=== PATIENT | female | born 2000 | race Caucasian/White ===

== ENCOUNTER → 2023-08-17 | Outpatient (CLI) | payer OTHER, SELFPAY ==
--- OUTSIDE RECORDS SUMMARY | 2023-08-17 10:55 | XMS RPT_ITS | CCD ---
Author Name Unknown Address [address] [place] [address] Organization [facility] Care Team Providers Care Keg Header Name Role Phone ELENA MYERS Attending UnavailLISSY Miller Attending Unavailable LISSY CANNON Primary Care Unavailable Lissy Cannon MD Primary Care Provider Roseann BYRNE Primary Care Physician [phone] Mihir FRIEND Attending Unavailable Medications Current Medications Medication Drug Class(es) Dates Sig (Normalized) Sig (Original) escitalopram 5 mg oral tablet (1 source) Serotonin Reuptake Inhibitor Start: 12-06-2022 End: 03-06-2023 take 1 tablet by mouth once daily escitalopram (Lexapro) 5 mg tablet Indications: Generalized anxiety disorder Take 1 tablet (5 mg) by mouth once daily. 30 tablet 2 12/06/2022 03/06/2023 Active {7 (Ethinyl Estradiol 0.035 MG / norgestimate 0.18 MG Oral Tablet) / 7 (Ethinyl Estradiol 0.035 MG / norgestimate 0.215 MG Oral Tablet) / 7 (Ethinyl Estradiol 0.035 MG / norgestimate 0.25 MG Oral Tablet) / 7 (Inert Ingredients 1 MG Oral Tablet) } Pack [Tr (2 sources) Progestin, Estrogen Start: 08-15-2021 take 1 tablet by mouth once daily Tri-Sprintec 35 mcg Tab = 1 tab(s), Oral, Daily, # 84 tab(s), Refills(s) 1, Pharmacy: [address], [address], cm, 04/21/20 7:58:00 EDT, Height/Length Dosing, 56.1, kg, 04/21/20 7:58:00 EDT, Weight Dosing Start Date: 08/15/21 Status: Ordered Problems Problem Classification Problem Date Documented Da te Episodic/Chronic Acute and chronic tonsillitis (1 source) Tonsillitis 06-13-2019 Episodic Anxiety disorders (4 sources) Generalized anxiety disorder; Translations: [Generalized anxiety disorder] Onset: 11-12-2021 Chronic Unclassified (1 source) Patient encounter status 06-07-2019 Results Test Name Value Interpretation Reference Range Facil ity Vital Signs Date Time Vital Sign Value Performing Clinician Faci lity 12-06-2022 11:13-0400 Body height 157.5 cm Lissy Cannon MD Work Phone: [facility] 12-06-2022 11:13-0400 Body mass index (BMI) [Ratio] 26.74 kg/m2 Lissy Cannon MD Work Phone: [facility] 12-06-2022 11:13-0400 Body weight 66.32 kg Lissy Cannon MD Work Phone: [facility] 12-06-2022 11:13-0400 Diastolic blood pressure 78 mm[Hg] Lissy Cannon MD Work Phone: [facility] 12-06-2022 11:13-0400 Heart rate 72 /min Lissy Cannon MD Work Phone: [facility] 12-06-2022 11:13-0400 Systolic blood pressure 120 mm[Hg] Lissy Cannon MD Work Phone: [facility] Encounters Encounter Date Encounter Type Care Provider Facility Start: 05-10-2023 End: 05-11-2023 ambulatory Mihir FRIEND Facility:[facility] on Start: 05-10-2023 End: 05-10-2023 Patient encounter procedure Mihir FRIEND [facility] [place] Start: 12-06-2022 End: 12-06-2022 ambulatory LISSY CANNON [facility] Start: 12-06-2022 End: 12-06-2022 Office outpatient new 30 minutes Lissy Cannon MD Work Phone: [facility] Plan of Treatment Date Care Activity Detail Author Start: 2048 Zoster Vaccines (1 of 2) Zoste r Vaccines (1 of 2) [facility] Start: 03-04-2023 Influenza vaccination Influenz a Vaccine (Season Ended) [facility] Start: 01-05-2023 End: 01-05-2023 Patient encounter procedure 01/05/2023 11:40 AM EDT Office Visit [facility] [address] [place] [id number] Lissy Cannon MD [address] [facility] [place] [id number] [facility] Start: 2020 DTaP/Tdap/Td Vaccine s (1 - Tdap) DTaP/Tdap/Td Vaccines (1 - Tdap) [facility] Start: 2019 Screening for malign ant neoplasm of cervix [facility] Start: 2016 Hepatitis C screening Hepatitis C Sc reening [facility] Start: 2009 HPV Vaccines (1 - 2- dose series) HPV Vaccines (1 - 2-dose series) [facility] Start: 1999 MMR Vaccines (1 of 1 - Standard series) MMR Vaccines (1 of 1 - Standard series) [facility] Start: 1999 Varicella vaccination Varicell a Vaccines (1 of 2 - 2-dose childhood series) [facility] Start: 1998 COVID-19 Vaccine (#1) COVID-19 Vacci ne (#1) [facility] Start: 1998 Hepatitis B Vaccines (1 of 3 - 3-dose series) Hepatitis B Vaccines (1 of 3 - 3-dose series) [facility] Start: 1998 HIV screening HIV Screening [facility] Start: 1998 Lipid panel Lipid Panel [facility] Start: 1998 Yearly Adult Physical Yearly Adult P hysical [facility] Immunizations Immunization Date Immunization Notes Care Provider Fa cility NEGATED: Highlighted row has not occurred!06-07-2019 influenza virus vaccine, unspecified formulation Mihir FRIEND [facility] Payers Date Payer Category Payer Unknown [id number] 2022 Unknown KESHA REBOLLEDO P [id number] 2022-Present [address] [place] [address] [id number] 2020 Unknown [id number] 1998 Unknown [id number] 1998 Unknown [id number] Social History Date Type Detail Facility Start: 06-07-2019 End: 12-06-2022 Tobacco smoking status NHIS Never smoked tobacco [facility] Work Phone: Start: 12-06-2022 Tobacco use and exposure Smokeless tobacco non-user [facility] Work Phone: Start: 12-06-2022 Alcohol intake Current drinke r of alcohol (finding) [facility] Work Phone: Start: 12-06-2022 History of Social function [facility] Work Phone: Start: 12-06-2022 Tobacco use panel [facility] Start: 1998 Sex Assigned At Not on file [facility] Work Phone: Start: 11-26-2022 End: 12-06-2022 Exposure to SARS-CoV-2 (event) Not sure [facility] Tobacco smoking status Never [facility] History of Present illness Narrative 12-06-2022 Acacia Be LPN - 12/06/2022 11:00 AM EDTLissy Cannon MD - 12/06/2022 11:00 AM EDT Note Date & Type Note Facility 12-06-2022 History of Present illness Narrative Here to establish care; 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 female who presents for Establish Care. HPI New patient to establish care. History of anxiety. Tried zoloft last year, it did help, but she felt tired all the time while taking it. She states she has always been anxious. She worries, and makes up worst case scenario type things and worries about that. She is interested in medication. We also discussed that counseling can be helpful along with medication. Getting this fall, planning to stop OCP at that time. Discussed start vitamins now and briefly dicussed folic acid/neural tube defects. Needs refill on OCP, has been on continuously since high school. Office policies and procedures reviewed including same day acutes, test results and how to contact ironer hand provider after hours. Review of Systems All other systems reviewed and are negative. . Objective Visit Vitals BP 120/78 (BP Location: Left arm, Patient Position: Sitting) Pulse 72 Physical Exam Vitals and nursing note reviewed. Constitutional: General: She is not in acute distress. Appearance: Normal appearance. She is not toxic-appearing. HENT: Head: Normocephalic and atraumatic. Cardiovascular: Rate and Rhythm: Normal rate and regular rhythm. Heart sounds: No murmur heard. Pulmonary: Effort: Pulmonary effort is normal. Breath sounds: Normal breath sounds. Abdominal: Palpations: Abdomen is soft. Musculoskeletal: Cervical back: Neck supple. No rigidity. Comments: Skin: General: Skin is warm and dry. Neurological: General: No focal deficit present. Mental Status: She is alert and oriented to person, place, and time. Psychiatric: Mood and Affect: Mood normal. Behavior: Behavior normal. Assessment/Plan Problem List Items Addressed This Visit Other Generalized anxiety disorder - Primary Relevant Medications escitalopram (Lexapro) 5 mg tablet Other Relevant Orders Follow Up In Primary Care Lissy Cannon MD documented in this encounter [facility] Work Phone: Instructions 12-06-2022 Patient Instructions Note Date & Type Note Facility 12-06-2022 Instructions Lissy Cannon MD - 12/06/2022 11:00 AM EDT Call concerns, follow up 1 mos. documented in this encounter [facility] Work Phone: Evaluation + Plan note Note Date & Type Note Facility Evaluation + Plan note No data available for this section [facility] Evaluation note Note Date & Type Note Facility documented in this encounter [facility] Work Phone: Hospital Discharge instructions Note Date & Type Note Facility Hospital Discharge instructions No data available for this section [facility] Progress note Note Date & Type Note Facility Progress note No data available for this section [facility] Reason for referral (narrative) Consultation (Routine) - Authorized Note Date & Type Note Facility Referral ID Status Reason Start Date Expiration Date V isits Requested Visits Authorized [id number] Authorized 12/06/2022 06/04/2023 1 1 [facility] Work Phone: Summary Purpose Family History No Family History Records FoundNo Family History Records FoundNo Family History Records Found No data available for this section No Family History Records Found Advance Directives No Advanced Directives Records FoundNo Advanced Directives Records FoundNo Advanced Directives Records FoundNo Advanced Directives Records Found Additional Source Comments INFORMATION SOURCE (unrecogn ized section and content) DATE CREATED AUTHOR AUTHOR'S ORGANIZ ATION 01/11/2022 [facility] DATE CREATED AUTHOR AUTHOR'S ORGANIZ ATION 12/11/2022 [facility] DATE CREATED AUTHOR AUTHOR'S ORGANIZ ATION 05/12/2023 [facility] Reason for Visit (unrecogniz ed section and content) Care Teams (unrecognized sec tion and content) FOR RECORDS PERTAINING TO PATIENTS WHO ARE OR HAVE BEEN ENROLLED IN A CHEMICAL DEPENDENCY/SUBSTANCEABUSE PROGRAM, SOME INFORMATION MAY BE OMITTED. This clinical summary was aggregated from multiple sources. Caution should be exercised in using it in the provision of clinical care. This summary normalizes information from multiple sources, and as a consequence, information in this document may materially change the coding, format and clinical context of patient data. In addition, data may be omitted in some cases. CLINICAL DECISIONS SHOULD BE BASED ON THE PRIMARY CLINICAL RECORDS. [facility]. provides no warranty or guarantee of the accuracy or completeness of information in this document.
[2023-08-19 06:09] LABS: Chlamydia By Nucleic Acid AMP Negative (Negative); Gonococcus By Nucleic Acid AMP Negative (Negative)
[2023-08-23 17:50] LABS: HPV Reflexed? NOT INDICATED
== END | disposition home or self-care (01) ==
LOC: LABSPEC 10:22
PROVIDERS: Obstetrics & Gynecology; Referring Provider Registered Nurse; Visit Provider Registered Nurse
DX: Z34.90 Encounter for supervision of normal pregnancy, unspecified, unspecified trimester (principal)
CPT/HCPCS: 87086; 87088; 87491; 87591; 88175; G0145

== ENCOUNTER → 2023-09-15 | Outpatient (CLI) | payer OTHER, SELFPAY ==
[2023-09-15 11:35] LABS: Absolute Lymphocyte Count 1.75 X10^3/uL (0.83-4.51); Absolute Neutrophil Count 10.7 X10^3/uL (2.0-7.7); Basophil# 0.05 X10^3/uL; Basophil% 0.4 % (0-1); Eosinophil# 0.18 X10^3/uL; Eosinophils% 1.4 % (0-5); Hematocrit 38.5 % (37-47); Hemoglobin 12.7 g/dL (12.0-15.0); Lymphocyte # 1.75 X10^3/ul (0.83-4.51); Lymphocyte % 13.1 % (19-41); Mean Corpuscular Hgb 28.9 pg (27.0-32.0); Mean Corpuscular Volume 87.5 fL (81-99); Mean Platelet Vol. 9.2 fl (6.2-12.0); Monocyte# 0.59 X10^3/uL; Monocyte% 4.4 % (0-10); NRBC Flagged by Analyzer 0 % (0-5); Neutrophil # 10.68 X10^3/uL (2.7-7.7); Neutrophil % 80.1 % (47-70); Platelet Count 264 K/mm3 (150-450); RBC Distribution Width CV 12.6 % (11.6-14.6); White Blood Count 13.3 K/mm3 (4.4-11.0)
[2023-09-15 12:31] LABS: HIV - WCH Non-Reactive (Nonreactive); Hepatitis B Surface Antigen Non-Reactive (Nonreactive); Hepatitis C Antibody Non-Reactive (Nonreactive); Rubella IgG Reactive (Nonreactive); Syphilis Antibodies Non-reactive
--- OUTSIDE RECORDS SUMMARY | 2023-09-15 19:26 | XMS RPT_ITS | CCD ---
Author Name Unknown Address [address] [place] [address] Organization [facility] Care Team Providers Care Fast Food Manager Name Role Phone ELENA MYERS Attending UnavailLISSY Miller Attending Unavailable LISSY CANNON Primary Care Unavailable Lissy Cannon MD Primary Care Provider Roseann BYRNE Primary Care Physician [phone] Mihir FRIEND Attending Unavailable Medications Current Medications [...] Daily, # 84 tab(s), Refills(s) 1, Pharmacy: [address], 155, cm, 04/21/20 7:58:00 EDT, Height/Length [...] 157.5 cm Lissy Cannon MD Work Phone: [facility] 12-06-2022 11:13-0400 Body mass index (BMI) [Ratio] 26.74 kg/m2 Lissy Cannon MD Work Phone: [facility] 12-06-2022 11:13-0400 Body weight 66.32 kg Lissy Cannon MD Work Phone: [facility] 12-06-2022 11:13-0400 Diastolic blood pressure 78 mm[Hg] Lissy Cannon MD Work Phone: [facility] 12-06-2022 11:13-0400 Heart rate 72 /min Lissy Cannon MD Work Phone: [facility] 12-06-2022 11:13-0400 Systolic blood pressure 120 mm[Hg] Lissy Cannon MD Work Phone: [facility] Encounters Encounter Date Encounter Type Care Provider Facility Start: 05-10-2023 End: 05-11-2023 ambulatory Mihir FRIEND Facility:[facility] on Start: 05-10-2023 End: 05-10-2023 Patient encounter procedure Mihir FRIEND [facility] [place] Start: 12-06-2022 End: 12-06-2022 ambulatory LISSY CANNON [facility] Start: 12-06-2022 End: 12-06-2022 Office outpatient new 30 minutes Lissy Cannon MD Work Phone: [facility] Plan of Treatment Date Care Activity Detail Author Start: 2048 Zoster Vaccines (1 of 2) Zoste r Vaccines (1 of 2) [facility] Start: 03-04-2023 Influenza vaccination Influenz a Vaccine (Season Ended) [facility] Start: 01-05-2023 End: 01-05-2023 Patient encounter procedure 01/05/2023 11:40 AM EDT Office Visit [facility] [address] [place] [id number] Lissy Cannon MD [address] [facility] [place] [phone] [facility] Start: 2020 DTaP/Tdap/Td Vaccine s (1 - Tdap) DTaP/Tdap/Td Vaccines (1 - Tdap) [facility] Start: 2019 Screening for malign ant neoplasm of cervix [facility] Start: 2016 Hepatitis C screening Hepatitis C Sc reening [facility] Start: 2009 HPV Vaccines (1 - 2- dose series) HPV Vaccines (1 - 2-dose series) [facility] Start: 1999 MMR Vaccines (1 of 1 - Standard series) MMR Vaccines (1 of 1 - Standard series) [facility] Start: 1999 Varicella vaccination Varicell a Vaccines (1 of 2 - 2-dose childhood series) [facility] Start: 1998 COVID-19 Vaccine (#1) COVID-19 Vacci ne (#1) [facility] Start: 1998 Hepatitis B Vaccines (1 of 3 - 3-dose series) Hepatitis B Vaccines (1 of 3 - 3-dose series) [facility] Start: 1998 HIV screening HIV Screening [facility] Start: 1998 Lipid panel Lipid Panel [facility] Start: 1998 Yearly Adult Physical Yearly Adult P hysical [facility] Immunizations Immunization Date Immunization Notes Care Provider Fa cility NEGATED: Highlighted row has not occurred!06-07-2019 influenza virus vaccine, unspecified formulation Mihir FRIEND [facility] Payers Date Payer Category Payer Unknown [id number] 2022 Unknown KESHA REBOLLEDO P [id number] 2022-Present [address] [place] [address] [id number] 2020 Unknown [id number] 1998 Unknown [id number] 1998 Unknown [id number] Social History Date Type Detail Facility Start: 06-07-2019 End: 12-06-2022 Tobacco smoking status NHIS Never smoked tobacco [facility] Work Phone: Start: 12-06-2022 Tobacco use and exposure Smokeless tobacco non-user [facility] Work Phone: Start: 12-06-2022 Alcohol intake Current drinke r of alcohol (finding) [facility] Work Phone: Start: 12-06-2022 History of Social function [facility] Work Phone: Start: 12-06-2022 Tobacco use panel [facility] Start: 1998 Sex Assigned At Not on file [facility] Work Phone: Start: 11-26-2022 End: 12-06-2022 Exposure to SARS-CoV-2 (event) Not sure [facility] Tobacco smoking status Never [facility] History of Present illness Narrative 12-06-2022 Acacia Be LPN - 12/06/2022 11:00 AM EDTLissy Cannon MD - 12/06/2022 11:00 AM EDT Note Date & Type Note Facility 12-06-2022 History of Present illness Narrative Here to establish care; 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 Review of Systems All [...] Lissy Cannon MD documented in this encounter [facility] Work Phone: Instructions 12-06-2022 Patient Instructions Note Date & Type Note Facility 12-06-2022 Instructions Lissy Cannon MD - 12/06/2022 11:00 AM EDT Call concerns, follow up 1 mos. documented in this encounter [facility] Work Phone: Evaluation + Plan note Note Date & Type Note Facility Evaluation + Plan note No data available for this section [facility] Evaluation note Note Date & Type Note Facility documented in this encounter [facility] Work Phone: Hospital Discharge instructions Note Date & Type Note Facility Hospital Discharge instructions No data available for this section [facility] Progress note Note Date & Type Note Facility Progress note No data available for this section [facility] Reason for referral (narrative) Consultation (Routine) - Authorized Note Date & Type Note Facility Referral ID Status Reason Start Date Expiration Date V isits Requested Visits Authorized [id number] Authorized 12/06/2022 06/04/2023 1 1 [facility] Work Phone: Summary Purpose Family [...] DATE CREATED AUTHOR AUTHOR'S ORGANIZ ATION 01/11/2022 [facility] DATE CREATED AUTHOR AUTHOR'S ORGANIZ ATION 12/11/2022 [facility] DATE CREATED AUTHOR AUTHOR'S ORGANIZ ATION 05/12/[address] [facility] Reason for Visit (unrecogniz ed section [...] BE BASED ON THE PRIMARY CLINICAL RECORDS. [facility]. provides no warranty or guarantee of the accuracy or completeness of information in this document.
== END | disposition home or self-care (01) ==
LOC: PAVLAB 11:00
PROVIDERS: Referring Provider Registered Nurse; Visit Provider Registered Nurse
DX: Z34.90 Encounter for supervision of normal pregnancy, unspecified, unspecified trimester (principal)
CPT/HCPCS: 36415; 85025; 86703; 86762; 86780; 86803; 86850; 86900; 86901; 87340

== ENCOUNTER → 2024-01-03 | Outpatient (CLI) | payer OTHER, SELFPAY ==
[2024-01-03 10:46] LABS: Glucose Challenge Gest 1H 50g 102 mg/dL (70-140)
== END | disposition home or self-care (01) ==
LOC: PAVLAB 09:26
PROVIDERS: Referring Provider Nurse Practitioner Women's Health; Visit Provider Nurse Practitioner Women's Health
DX: Z13.1 Encounter for screening for diabetes mellitus (principal)
CPT/HCPCS: 36415; 82950

== ENCOUNTER → 2024-01-16 | Outpatient (CLI) | payer OTHER, SELFPAY ==
[2024-01-16 09:19] LABS: Absolute Lymphocyte Count 1.77 X10^3/uL (0.83-4.51); Absolute Neutrophil Count 12.1 X10^3/uL (2.0-7.7); Basophil# 0.04 X10^3/uL; Basophil% 0.3 % (0-1); Eosinophil# 0.26 X10^3/uL; Eosinophils% 1.7 % (0-5); Hematocrit 33.3 % (37-47); Hemoglobin 10.5 g/dL (12.0-15.0); Lymphocyte # 1.77 X10^3/ul (0.83-4.51); Lymphocyte % 11.7 % (19-41); Mean Corp Hgb Conc 31.5 g/dL (32-36); Mean Corpuscular Hgb 28.1 pg (27.0-32.0); Mean Platelet Vol. 10.1 fl (6.2-12.0); Monocyte# 0.74 X10^3/uL; Monocyte% 4.9 % (0-10); NRBC Flagged by Analyzer 0 % (0-5); Platelet Count 225 K/mm3 (150-450); RBC Distribution Width CV 12.7 % (11.6-14.6); RBC Distribution Width SD 40.9 fl (35.1-43.9); Red Blood Count 3.74 M/mm3 (4.2-5.4); White Blood Count 15.1 K/mm3 (4.4-11.0)
[2024-01-16 10:20] LABS: HIV - WCH Non-Reactive (Nonreactive); Syphilis Antibodies Non-reactive
== END | disposition home or self-care (01) ==
LOC: PAVLAB 09:08
PROVIDERS: Referring Provider Nurse Practitioner Women's Health; Visit Provider Nurse Practitioner Women's Health
DX: Z34.92 Encounter for supervision of normal pregnancy, unspecified, second trimester (principal); Z3A.24 24 weeks gestation of pregnancy
CPT/HCPCS: 36415; 85025; 86703; 86780

== ENCOUNTER → 2024-02-17 | Outpatient (CLI) | payer OTHER, SELFPAY ==
[2024-02-17 10:37] LABS: Absolute Lymphocyte Count 1.54 X10^3/uL (0.83-4.51); Absolute Neutrophil Count 13.3 X10^3/uL (2.0-7.7); Basophil# 0.05 X10^3/uL; Basophil% 0.3 % (0-1); Eosinophil# 0.15 X10^3/uL; Eosinophils% 0.9 % (0-5); Hemoglobin 11.1 g/dL (12.0-15.0); Lymphocyte # 1.54 X10^3/ul (0.83-4.51); Lymphocyte % 9.6 % (19-41); Mean Corp Hgb Conc 31.7 g/dL (32-36); Mean Corpuscular Volume 88.4 fL (81-99); Mean Platelet Vol. 11.4 fl (6.2-12.0); Monocyte# 0.92 X10^3/uL; Monocyte% 5.7 % (0-10); NRBC Flagged by Analyzer 0 % (0-5); Neutrophil # 13.25 X10^3/uL (2.7-7.7); Neutrophil % 82.8 % (47-70); Platelet Count 161 K/mm3 (150-450); RBC Distribution Width CV 14.3 % (11.6-14.6); Red Blood Count 3.96 M/mm3 (4.2-5.4)
== END | disposition home or self-care (01) ==
LOC: LAB 10:12
PROVIDERS: Referring Provider Obstetrics & Gynecology; Visit Provider Obstetrics & Gynecology
DX: O99.019 Anemia complicating pregnancy, unspecified trimester (principal); D72.829 Elevated white blood cell count, unspecified; Z3A.00 Weeks of gestation of pregnancy not specified
CPT/HCPCS: 36415; 85025

== ENCOUNTER → 2024-02-22 | Outpatient (CLI) | payer OTHER, SELFPAY | END | disposition home or self-care (01) | LOC: LABSPEC 12:35 | PROVIDERS: Referring Provider Obstetrics & Gynecology; Visit Provider Obstetrics & Gynecology | DX: O09.93 Supervision of high risk pregnancy, unspecified, third trimester (principal); Z3A.00 Weeks of gestation of pregnancy not specified | CPT/HCPCS: 87081 ==

== ENCOUNTER 2024-02-29 22:04 | Outpatient (CLI) | payer OTHER, SELFPAY ==
[2024-02-29 22:15] VITALS: BMI 30.4
[2024-02-29 22:22] VITALS: BP 138/81; PULSE 87; O2SAT 100
[2024-02-29 22:23] VITALS: RESP 16; TEMP 37.1
[2024-02-29 22:34] VITALS: BP 130/80; PULSE 78
[2024-02-29 22:53] VITALS: BP 126/83; PULSE 80
[2024-02-29 23:09] VITALS: BP 128/83; PULSE 71
[2024-02-29 23:23] VITALS: BP 136/81; PULSE 79
--- NOTE | 2024-02-29 23:31 | OB.TRI.HP_ITS ---
HPI - General HPI Narrative EMILIE HUGHES, is a 23 y/o @ 37 weeks who presents to L&D with the complaint of elevated bp's at home. She has also been experiencing mild headaches. Maternal Data Information NADINE Calculator Estimated Delivery Date Method Current WG Current Estimate 03/21/24 LMP (Certain) 37w 6d Other Estimates 03/16/24 Ultrasound #1 38w 4d PFSH PFS Medical History (Updated 03/06/24 @ 12:[address] Lia Pereira, DO) Anxiety Elevated WBC count Seasonal allergies Home Medications ?Medication ?Instructions ?Recorded ?Last Taken ?Type PNV 153-FA 400 mcg-om3 35 mg-dha 1 tab PO DAILY 08/12/23 Unknown History 25 mg-epa 5 mg-fish oil chew tablet magnesium aspart,citrate,oxide mg PO 08/12/23 Unknown History (Triple Magnesium Complex) pyridoxine (vitamin B6) 25 mg 25 mg PO DAILY 08/12/23 Unknown History tablet ferrous sulfate 325 mg (65 mg 325 mg PO DAILY 02/02/24 Unknown History iron) tablet Allergy/AdvReac Type Severity Reaction Status Date / Time No Known Allergies Allergy Verified 03/04/24 20:03 Family History Grandfather Diabetes Paternal Type 1 Surgical History [place] teeth extracted Social History adopted: No household members: spouse current occupational status: employed current occupation: [employer] current occupational exposures/hazards: No pets and animals: Yes (Avoid litterbox) pets and animals: cat(s) and dog(s) history of recent travel: Yes (MAY- ) out of state: Yes out of country: Yes sexually active: Yes Smoking Status: Never smoker alcohol intake: never substance use type: does not use well-balanced diet: daily or most days caffeine: No eating out: 1-3 times/week during the past year weight has: remained stable what type of physical activity do you participate in: walking and bicycling frequency: 5-6 times per week duration: 15-30 minutes/day anant/amish: None seatbelt use: always do you feel safe at home: Yes additional social history: Arnol- Purchasing History 1 Elective abortions Hx Para 0 Spontaneous abortions Hx # Term Pregnancies Ectopic pregnancies Hx # Pregnancies Multiple births # of living children Visit Details Expected Delivery Route/Plan Labor Preferences- CB/BF classes: encouraged labor support person: Arnol labor intervention preferences: [] pain management options preferred: discussed cut cord/dad catch: yes : yes PP control planned: discussed discussed possible routes of delivery and associated risks: [] special requests: [] Plans Covid status: [] Flu vaccine: [] Tdap vaccine: declines Rhogam: na LARC form signed: yes movement and labor precautions reviewed. Problem list reviewed and updated with the most current plan of care details and appropriate orders placed. Relevant counseling for the gestational age provided. Continue routine care and follow up unless otherwise noted in visit notes/problem list details OB Flowsheet Initial Weight: Not Recorded Date -?-?-?-?-?-?-?-?-?-?-?-?- EGA Weight BP Urine Prot -?-?-?-?-?-?-?-?-?-?-?-?- Glucose FHR FuHt Pres Dilation -?-?-?-?-?-?-?-?-?-?-?-?- Effaced St Visit Note 08/17/23 -?-?-?-?-?-?-?-?-?-?-?-?- 9w 0d 144 lb 2 oz 114/80 -?-?-?-?-?-?-?-?-?-?-?-?- 171 -?-?-?-?-?-?-?-?-?-?-?-?- JV- CRL consiste nt with LMP. Desires nipt and carrier. 09/15/23 -?-?-?-?-?-?-?-?-?-?-?-?- 13w 1d 142 lb 110/71 Negative -?-?-?-?-?-?-?-?-?-?-?-?- Negative 145 -?-?-?-?-?-?-?-?-?-?-?-?- SM- no vb crampi ng getting labs drawn today 10/13/23 -?-?-?-?-?-?-?-?-?-?-?-?- 17w 1d 143 lb 2 oz 129/74 Nega tive -?-?-?-?-?-?-?-?-?-?-?-?- Negative 150 -?-?-?-?-?-?-?-?-?-?-?-?- kw- no vb/crampi ng. afp declines. US may 7. 11/11/23 -?-?-?-?-?-?-?-?-?-?-?-?- 21w 2d 145 lb 6 oz 114/76 Nega tive -?-?-?-?-?-?-?-?-?-?-?-?- Negative 145 21 -?-?-?-?-?-?-?-?-?-?-?-?- LC- no vb/crampi ng. has echo scheduled for next tuesday. low risk nipt. 12/06/23 -?-?-?-?-?-?-?-?-?-?-?-?- 24w 6d 150 lb 110/72 Negative -?-?-?-?-?-?-?-?-?-?-?-?- Negative 143 25 -?-?-?-?-?-?-?-?-?-?-?-?- MH-No VB, LOF. G ood FM. Larc. Denies concerns 01/03/24 -?-?-?-?-?-?-?-?-?-?-?-?- 28w 6d 151 lb 8 oz 112/66 Nega tive -?-?-?-?-?-?-?-?-?-?-?-?- Negative 158 28 -?-?-?-?-?-?-?-?-?-?-?-?- MH-NO Vb, LOF. G ood Fm. Tdap declined. 28 wk labs pending 01/16/24 -?-?-?-?-?-?-?-?-?-?-?-?- 30w 5d 155 lb 4 oz 128/78 Nega tive -?-?-?-?-?-?-?-?-?-?-?-?- Negative 165 32 -?-?-?-?-?-?-?-?-?-?-?-?- JV- no lof, vagi nal bleeding,or dec fm. need echo report in chart, 02/02/24 -?-?-?-?-?-?-?-?-?-?-?-?- 33w 1d 163 lb 4 oz 120/79 Nega tive -?-?-?-?-?-?-?-?-?-?-?-?- Negative 130 34 -?-?-?-?-?-?-?-?-?-?-?-?- SM- no vb lof go od fm no regular ctx 02/17/24 -?-?-?-?-?-?-?-?-?-?-?-?- 35w 2d 164 lb 8 oz 123/85 Nega tive -?-?-?-?-?-?-?-?-?-?-?-?- Negative 130 36 Cephalic -?-?-?-?-?-?-?-?-?-?-?-?- KW- no vb/lof/ct x. good fm. GBS next visit. 02/22/24 -?-?-?-?-?-?-?-?-?-?-?-?- 36w 0d 166 lb 4 oz 124/83 Nega tive -?-?-?-?-?-?-?-?-?-?-?-?- Negative 150 36 Cephalic 0 -?-?-?-?-?-?-?-?-?-?-?-?- JV- GBS collecte d. no lof, vaginal bleeding, or dec fm. 03/01/24 -?-?-?-?-?-?-?-?-?-?-?-?- 37w 1d 166 lb 133/85 Negative -?-?-?-?-?-?-?-?-?-?-?-?- Negative 150 37 Cephalic -?-?-?-?-?-?-?-?-?-?-?-?- SM- no vb lof go od fm no regular ctx ROS Constitutional Constitutional: Reports systems reviewed and no addt'l complaints, except as documented Gastrointestinal Gastrointestinal: Denies bloating, constipation, cramping, diarrhea, nausea or vomiting Genitourinary Genitourinary: Reports other Details: Denies vaginal odor, vaginal bleeding, or vaginal discharge ; Denies difficulty urinating or flank pain NST FHR Rate Baby A Baseline: 120 Variability:: Moderate Accelerations:: 15 x 15 Decelerations:: None NST Reactive:: Yes FHR Category:: Category I Assessment & Plan (1) Supervision of high-risk : QUALIFIERS: Trimester: third trimester Qualified Code(s): O09.93 - Supervision of high risk , unspecified, third trimester COMMENT: PRR , Boy,NADINE 03/21/24 Arnol (2) : QUALIFIERS: Weeks of gestation: 37 weeks Qualified Code(s): Z3A.37 - 37 weeks gestation of COMMENT: NIPT low risk, carrier neg. , discussed genetic & carrier testing (3) Anxiety: COMMENT: stable (4) Headache in , antepartum: PLAN: Plan PIH work up is negative NST reactive ok to dc to home with close supervision. plan to repeat pih labs in a week or less. Charges/Coding Multi Select Codes Urinary/Genital Urinary/Genital CPT Codes: 59691-00 non-stress test Interp
[2024-03-01 00:16] LABS: Hematocrit 34.7 % (37-47); Hemoglobin 11.3 g/dL (12.0-15.0); Mean Corp Hgb Conc 32.6 g/dL (32-36); Mean Corpuscular Hgb 28.1 pg (27.0-32.0); Mean Corpuscular Volume 86.3 fL (81-99); Platelet Count 167 K/mm3 (150-450); RBC Distribution Width CV 14.3 % (11.6-14.6); RBC Distribution Width SD 43.5 fl (35.1-43.9); Red Blood Count 4.02 M/mm3 (4.2-5.4); White Blood Count 18.1 K/mm3 (4.4-11.0)
[2024-03-01 00:19] LABS: Protein, Urine (Random) < 6.0 mg/dL (<11.9); Protein:Creat Ratio 296 mg/g CRE (0-200)
[2024-03-01 00:30] LABS: AST(SGOT) 16 U/L (15-37); Alanine Aminotransfer ALT/SGPT 10 U/L (13-56); Creatinine, Serum 0.62 mg/dL (0.55-1.02); EST Glomerular Filtration Rate 125 mL/min (>60); Est Glom Filt Rate - Afr Amer 151 mL/min (>60); Estimated Creatinine Clearance 131.82 ml/min; Uric Acid 4.7 mg/dL (2.6-6.0)
[2024-03-01 00:43] VITALS: BP 124/74; PULSE 74
[2024-03-01 00:44] VITALS: RESP 16; TEMP 37.4
== END 2024-03-01 01:15 | disposition home or self-care (01) ==
LOC: WPOUT 22:13 → WP 22:13
PROVIDERS: Referring Provider Obstetrics & Gynecology; Visit Provider Obstetrics & Gynecology
DX: O99.891 Other specified diseases and conditions complicating pregnancy (principal); O99.343 Other mental disorders complicating pregnancy, third trimester; R51.9 Headache, unspecified; F41.9 Anxiety disorder, unspecified; Z3A.37 37 weeks gestation of pregnancy
CPT/HCPCS: 36415; 59025; 59050; 82565; 82570; 84156; 84450; 84460; 84550; 85027; 99221; G0378

== ENCOUNTER 2024-03-04 20:37 | Inpatient (IN) | payer OTHER, SELFPAY ==
[2024-03-04 19:52] VITALS: BMI 30.7
[2024-03-04 19:59] VITALS: PULSE 72; O2SAT 100
[2024-03-04 20:00] VITALS: BP 155/97; PULSE 73; RESP 14; TEMP 37.1
[2024-03-04 20:18] VITALS: BP 150/89; PULSE 71
[2024-03-04 20:34] VITALS: BP 148/95; PULSE 76
[2024-03-04 20:41] LABS: ROM Internal Control Test YES-OK TO RESULT pt. (Internal QC)
[2024-03-04 20:42] LABS: ROM Patient Test POSITIVE (Negative); Record Kit Lot#, ROM+ K1866
[2024-03-04 20:48] VITALS: BP 155/93; PULSE 69
[2024-03-04] MEDS: Lactated Ringers 1,000 ML 50 ML IV (21:00)
[2024-03-04 21:17] LABS: Absolute Lymphocyte Count 1.84 X10^3/uL (0.83-4.51); Absolute Neutrophil Count 12.7 X10^3/uL (2.0-7.7); Basophil# 0.04 X10^3/uL; Basophil% 0.3 % (0-1); Eosinophils% 1.3 % (0-5); Hematocrit 35.6 % (37-47); Hemoglobin 11.5 g/dL (12.0-15.0); Lymphocyte # 1.84 X10^3/ul (0.83-4.51); Lymphocyte % 11.5 % (19-41); Mean Corp Hgb Conc 32.3 g/dL (32-36); Mean Corpuscular Hgb 27.9 pg (27.0-32.0); Mean Corpuscular Volume 86.4 fL (81-99); Mean Platelet Vol. 12.6 fl (6.2-12.0); Monocyte# 1.13 X10^3/uL; Monocyte% 7.1 % (0-10); NRBC Flagged by Analyzer 0 % (0-5); Neutrophil # 12.68 X10^3/uL (2.7-7.7); Neutrophil % 79.2 % (47-70); Platelet Count 164 K/mm3 (150-450); RBC Distribution Width CV 14.2 % (11.6-14.6); RBC Distribution Width SD 44.2 fl (35.1-43.9); Red Blood Count 4.12 M/mm3 (4.2-5.4)
[2024-03-04 21:22] LABS: Protein, Urine (Random) 8.8 mg/dL (<11.9); Protein:Creat Ratio 221 mg/g CRE (0-200)
[2024-03-04 21:31] LABS: AST(SGOT) 13 U/L (15-37); Alanine Aminotransfer ALT/SGPT 11 U/L (13-56); Creatinine, Serum 0.68 mg/dL (0.55-1.02); EST Glomerular Filtration Rate 111 mL/min (>60); Est Glom Filt Rate - Afr Amer 134 mL/min (>60); Estimated Creatinine Clearance 120.87 ml/min; Uric Acid 5.2 mg/dL (2.6-6.0)
[2024-03-04 21:52] LABS: Syphilis Antibodies Non-reactive
[2024-03-04] MEDS: Lactated Ringers 1,000 ML 999 ML IV (23:30)
[2024-03-05] VITALS (78 sets, daily range): BP systolic 101–159; BP diastolic 56–95; PULSE 67–115; RESP 14–24; TEMP 36.2–37.4; O2SAT 80–100
[2024-03-05] MEDS: fentaNYL-bupivacaine (epidural) 100 ML BAG EPIDURAL ×2 (01:03→05:50)
[2024-03-05] MEDS: Ondansetron 4 MG/2 ML Vial IV ×2 (01:18→05:12)
[2024-03-05] MEDS: Lactated Ringers 1,000 ML 200 ML IV ×2 (04:27→09:53)
[2024-03-05] MEDS: Mag /Aluminum/Simeth WCH UDC 30 ML ORAL.SUSP PO (05:12)
[2024-03-05] MEDS: proCHLORPERazine 10 MG/2 ML Vial IV (07:06)
--- NOTE | 2024-03-05 07:55 | HP.PCM.OB_ITS ---
HPI - General General Date of Admission: 03/04/24 HPI Narrative EMILIE HUGHES, is a 23 F who presents in active labor 5 cm dilated with rupture membranes positive SROM. Denies any vaginal bleeding admits good movement. Maternal Data Information NADINE Calculator Estimated Delivery Date Method Current WG Current Estimate 03/21/24 LMP (Certain) 37w 5d Other Estimates 03/16/24 [facility]trasound [facility]1 38w 3d [facility] Medical History (Updated 03/05/24 @ 07:[address] Jasmina Fagan MD) Anxiety Elevated WBC count Seasonal allergies Home Medications ?Medication ?Instructions ?Recorded ?Last Taken ?Type PNV 153-FA 400 mcg-om3 35 mg-dha 1 tab PO DAILY 08/12/23 Unknown History 25 mg-epa 5 mg-fish oil chew tablet magnesium aspart,citrate,oxide mg PO 08/12/23 Unknown History (Triple Magnesium Complex) pyridoxine (vitamin B6) 25 mg 25 mg PO DAILY 08/12/23 Unknown History tablet ferrous sulfate 325 mg (65 mg 325 mg PO DAILY 02/02/24 Unknown History iron) tablet Allergy/AdvReac Type Severity Reaction Status Date / Time No Known Allergies Allergy Verified 03/04/24 20:03 Family History Grandfather Diabetes Paternal Type 1 Surgical History [place] teeth extracted Social History adopted: No household members: spouse current occupational status: employed current occupation: [employer] current occupational exposures/hazards: No pets and animals: Yes (Avoid litterbox) pets and animals: cat(s) and dog(s) history of recent travel: Yes () out of state: Yes out of country: Yes sexually active: Yes Smoking Status: Never smoker alcohol intake: never substance use type: does not use well-balanced diet: daily or most days caffeine: No eating out: 1-3 times/week during the past year weight has: remained stable what type of physical activity do you participate in: walking and bicycling frequency: 5-6 times per week duration: 15-30 minutes/day anant/hindu: None seatbelt use: always do you feel safe at home: Yes additional social history: Arnol- Purchasing History 1 Elective abortions Hx Para 0 Spontaneous abortions Hx # Term Pregnancies Ectopic pregnancies Hx # Pregnancies Multiple births # of living children Visit Details Expected Delivery Route/Plan Labor Preferences- CB/BF classes: encouraged labor support person: Arnol labor intervention preferences: [] pain management options preferred: discussed cut cord/dad catch: yes : yes PP control planned: discussed discussed possible routes of delivery and associated risks: [] special requests: [] Plans Covid status: [] Flu vaccine: [] Tdap vaccine: declines Rhogam: na LARC form signed: yes movement and labor precautions reviewed. Problem list reviewed and updated with the most current plan of care details and appropriate orders placed. Relevant counseling for the gestational age provided. Continue routine care and follow up unless otherwise noted in visit notes/problem list details OB Flowsheet Initial Weight: Not Recorded Date -?-?-?-?-?-?-?-?-?-?-?-?- EGA Weight BP Urine Prot -?-?-?-?-?-?-?-?-?-?-?-?- Glucose FHR FuHt Pres Dilation -?-?-?-?-?-?-?-?-?-?-?-?- Effaced St Visit Note 08/17/23 -?-?-?-?-?-?-?-?-?-?-?-?- 9w 0d 144 lb 2 oz 114/80 -?-?-?-?-?-?-?-?-?-?-?-?- 171 -?-?-?-?-?-?-?-?-?-?-?-?- JV- CRL consiste nt with LMP. Desires nipt and carrier. 09/15/23 -?-?-?-?-?-?-?-?-?-?-?-?- 13w 1d 142 lb 110/71 Negative -?-?-?-?-?-?-?-?-?-?-?-?- Negative 145 -?-?-?-?-?-?-?-?-?-?-?-?- SM- no vb crampi ng getting labs drawn today 10/13/23 -?-?-?-?-?-?-?-?-?-?-?-?- 17w 1d 143 lb 2 oz 129/74 Nega tive -?-?-?-?-?-?--?-?-?-?-?-?- Negative 150 -?-?-?-?-?-?-?-?-?-?-?-?- kw- no vb/crampi ng. afp declines. US may 7. 11/11/23 -?-?-?-?-?-?-?-?-?-?-?-?- 21w 2d 145 lb 6 oz 114/76 Nega tive -?-?-?-?-?-?-?-?-?-?-?-?- Negative 145 21 -?-?-?-?-?-?-?-?-?-?-?-?- LC- no vb/crampi ng. has echo scheduled for next tuesday. low risk nipt. 12/06/23 -?-?-?-?-?-?-?-?-?-?-?-?- 24w 6d 150 lb 110/72 Negative -?-?-?-?-?-?-?-?-?-?-?-?- Negative 143 25 -?-?-?-?-?-?-?-?-?-?-?-?- -No VB, LOF. G ood FM. Larc. Denies concerns 01/03/24 -?-?-?-?-?-?-?-?-?-?-?-?- 28w 6d 151 lb 8 oz 112/66 Nega tive -?-?-?-?-?-?--?-?-?-?-?-?- Negative 158 28 -?-?-?-?-?-?-?-?-?-?-?-?- MH-NO Vb, LOF. G ood Fm. Tdap declined. 28 wk labs pending 01/16/24 -?-?-?-?-?-?-?-?-?-?-?-?- 30w 5d 155 lb 4 oz 128/78 Nega tive -?-?-?-?-?-?-?-?-?-?-?-?- Negative 165 32 -?-?-?-?-?-?-?-?-?-?-?-?- JV- no lof, vagi nal bleeding,or dec fm. need echo report in chart, 02/02/24 -?-?-?-?-?-?-?-?-?-?-?-?- 33w 1d 163 lb 4 oz 120/79 Nega tive -?-?-?-?-?-?-?-?-?-?-?-?- Negative 130 34 -?-?-?-?-?-?-?-?-?-?-?-?- SM- no vb lof go od fm no regular ctx 02/17/24 -?-?-?-?-?-?-?-?-?-?-?-?- 35w 2d 164 lb 8 oz 123/85 Nega tive -?-?-?-?--?-?-?-?-?-?-?-?- Negative 130 36 Cephalic -?-?-?-?-?-?-?-?-?-?-?-?- KW- no vb/lof/ct x. good fm. GBS next visit. 02/22/24 -?-?-?-?-?-?-?-?-?-?-?-?- 36w 0d 166 lb 4 oz 124/83 Nega tive -?-?-?-?-?-?-?-?-?-?-?-?- Negative 150 36 Cephalic 0 -?-?-?-?-?-?-?-?-?-?-?-?- JV- GBS collecte d. no lof, vaginal bleeding, or dec fm. 03/01/24 -?-?-?-?-?-?-?-?-?-?-?-?- 37w 1d 166 lb 133/85 Negative -?-?-?-?-?-?-?-?-?-?-?-?- Negative 150 37 Cephalic -?-?-?-?-?-?-?-?-?-?-?-?- SM- no vb lof go od fm no regular ctx NST FHR Rate Baby A Baseline: 130 Variability:: Moderate Accelerations:: 15 x 15 Decelerations:: None NST Reactive:: Yes FHR Category:: Category I Uterine Activity:: q3-5 ROS Constitutional Constitutional: Reports systems reviewed and no addt'l complaints, except as documented ENT HEENT: Reports systems reviewed and no addt'l complaints, except as documented Cardiovascular Cardiovascular: Reports systems reviewed and no addt'l complaints, except as documented Respiratory/Chest Respiratory/Chest: Reports systems reviewed and no addt'l complaints, except as documented Gastrointestinal Gastrointestinal: Reports systems reviewed and no addt'l complaints, except as documented and nausea; Denies abdominal pain Genitourinary Genitourinary: Reports systems reviewed and no addt'l complaints, except as documented, contractions Details: present and frequency (regular ) and movement Details: present Musculoskeletal Musculoskeletal: Reports systems reviewed and no addt'l complaints, except as documented Integumentary Integumentary: Reports as per HPI Neurologic Neurologic: Reports systems reviewed and no addt'l complaints, except as documented Endocrine Endocrinology: Reports systems reviewed and no addt'l complaints, except as documented Vital Signs Vital Signs Vital Signs: 03/04/24 19:59 03/04/24 19:59 03/04/24 20:00 Temperature Temperature Source Pulse Rate 72 Respiratory Rate Blood Pressure 155/97 H BP Systolic 155 BP Diastolic 97 Pulse Ox 100 03/04/24 20:00 03/04/24 20:00 03/04/24 20:00 Temperature Temperature Source Temporal Pulse Rate 73 Respiratory Rate 14 Blood Pressure BP Systolic BP Diastolic Pulse Ox 03/04/24 20:00 03/04/24 20:18 03/04/24 20:18 Temperature 98.7 F Temperature Source Pulse Rate 71 Respiratory Rate Blood Pressure 150/89 H BP Systolic 150 BP Diastolic 89 Pulse Ox 03/04/24 20:34 03/04/24 20:34 03/04/24 20:48 Temperature Temperature Source Pulse Rate 76 Respiratory Rate Blood Pressure 148/95 H 155/93 H BP Systolic 148 155 BP Diastolic 95 93 Pulse Ox 03/04/24 20:48 03/05/24 00:03/05/24 00:09 Temperature Temperature Source Pulse Rate 69 76 Respiratory Rate Blood Pressure BP Systolic BP Diastolic Pulse Ox 100 03/05/24 00:03/05/24 00:03/05/24 00:09 Temperature 99.0 F Temperature Source Temporal Pulse Rate Respiratory Rate 14 Blood Pressure BP Systolic BP Diastolic Pulse Ox 03/05/24 00:14 03/05/24 00:14 03/05/24 00:18 Temperature Temperature Source Pulse Rate 76 Respiratory Rate Blood Pressure 132/79 H BP Systolic 132 BP Diastolic 79 Pulse Ox 100 03/05/24 00:18 03/05/24 00:19 03/05/24 00:19 Temperature Temperature Source Pulse Rate 74 76 Respiratory Rate Blood Pressure BP Systolic BP Diastolic Pulse Ox 100 03/05/24 00:24 03/05/24 00:03/05/24 00:24 Temperature Temperature Source Pulse Rate 84 85 Respiratory Rate Blood Pressure BP Systolic BP Diastolic Pulse Ox 80 03/05/24 00:24 03/05/24 00:25 03/05/24 00:25 Temperature Temperature Source Pulse Rate 80 Respiratory Rate Blood Pressure 146/84 H BP Systolic 146 BP Diastolic 84 Pulse Ox 93 03/05/24 00:29 03/05/24 00:29 03/05/24 00:30 Temperature Temperature Source Pulse Rate 90 Respiratory Rate Blood Pressure 130/82 H BP Systolic 130 BP Diastolic 82 Pulse Ox 100 03/05/24 00:30 03/05/24 00:30 03/05/24 00:34 Temperature Temperature Source Pulse Rate 84 Respiratory Rate Blood Pressure 137/77 H BP Systolic 137 BP Diastolic 77 Pulse Ox 94 03/05/24 00:34 03/05/24 00:34 03/05/24 00:38 Temperature Temperature Source Pulse Rate 88 Respiratory Rate Blood Pressure 142/79 H BP Systolic 142 BP Diastolic 79 Pulse Ox 100 03/05/24 00:38 03/05/24 00:39 03/05/24 00:39 Temperature Temperature Source Pulse Rate 75 77 Respiratory Rate Blood Pressure BP Systolic BP Diastolic Pulse Ox 100 03/05/24 00:44 03/05/24 00:44 03/05/24 00:44 Temperature Temperature Source Pulse Rate 97 Respiratory Rate Blood Pressure 140/67 H BP Systolic 140 BP Diastolic 67 Pulse Ox 100 03/05/24 00:49 03/05/24 00:49 03/05/24 00:50 Temperature Temperature Source Pulse Rate 90 Respiratory Rate Blood Pressure 159/77 H BP Systolic 159 BP Diastolic 77 Pulse Ox 100 03/05/24 00:50 03/05/24 00:54 03/05/24 00:54 Temperature Temperature Source Pulse Rate 96 98 Respiratory Rate Blood Pressure BP Systolic BP Diastolic Pulse Ox 100 03/05/24 00:55 03/05/24 00:59 03/05/24 00:59 Temperature Temperature Source Pulse Rate 97 Respiratory Rate 24 H Blood Pressure 156/77 H BP Systolic 156 BP Diastolic 77 Pulse Ox 03/05/24 00:59 03/05/24 00:59 03/05/24 01:00 Temperature Temperature Source Pulse Rate 97 Respiratory Rate 16 Blood Pressure BP Systolic BP Diastolic Pulse Ox 100 03/05/24 01:04 03/05/24 01:04 03/05/24 01:04 Temperature Temperature Source Pulse Rate 92 101 H Respiratory Rate Blood Pressure 151/92 H BP Systolic 151 BP Diastolic 92 Pulse Ox 03/05/24 01:04 03/05/24 01:05 03/05/24 01:09 Temperature Temperature Source Pulse Rate Respiratory Rate 16 Blood Pressure 141/87 H BP Systolic 141 BP Diastolic 87 Pulse Ox 100 03/05/24 01:09 03/05/24 01:09 03/05/24 01:10 Temperature Temperature Source Pulse Rate 108 H Respiratory Rate 14 Blood Pressure BP Systolic BP Diastolic Pulse Ox 100 03/05/24 01:14 03/05/24 01:14 03/05/24 01:15 Temperature Temperature Source Pulse Rate 108 H Respiratory Rate 14 Blood Pressure BP Systolic BP Diastolic Pulse Ox 100 03/05/24 01:19 03/05/24 01:19 03/05/24 01:20 Temperature Temperature Source Pulse Rate 113 H Respiratory Rate 16 Blood Pressure BP Systolic BP Diastolic Pulse Ox 100 03/05/24 01:24 03/05/24 01:24 03/05/24 01:25 Temperature Temperature Source Pulse Rate 103 H Respiratory Rate Blood Pressure 128/75 H BP Systolic 128 BP Diastolic 75 Pulse Ox 99 03/05/24 01:25 03/05/24 01:26 03/05/24 01:26 Temperature Temperature Source Temporal Pulse Rate 113 H Respiratory Rate 14 Blood Pressure BP Systolic BP Diastolic Pulse Ox 03/05/24 01:26 03/05/24 01:29 03/05/24 01:29 Temperature 98.7 F Temperature Source Pulse Rate 115 H Respiratory Rate Blood Pressure BP Systolic BP Diastolic Pulse Ox 99 03/05/24 01:34 03/05/24 01:34 03/05/24 01:39 Temperature Temperature Source Pulse Rate 110 H 109 H Respiratory Rate Blood Pressure BP Systolic BP Diastolic Pulse Ox 99 03/05/24 01:39 03/05/24 01:44 03/05/24 01:44 Temperature Temperature Source Pulse Rate 104 H Respiratory Rate Blood Pressure BP Systolic BP Diastolic Pulse Ox 99 99 03/05/24 01:49 03/05/24 01:49 03/05/24 01:54 Temperature Temperature Source Pulse Rate 110 H 105 H Respiratory Rate Blood Pressure BP Systolic BP Diastolic Pulse Ox 99 03/05/24 01:54 03/05/24 01:57 03/05/24 01:57 Temperature Temperature Source Pulse Rate 85 Respiratory Rate Blood Pressure 126/80 H BP Systolic 126 BP Diastolic 80 Pulse Ox 100 03/05/24 01:59 03/05/24 01:59 03/05/24 02:04 Temperature Temperature Source Pulse Rate 97 93 Respiratory Rate Blood Pressure BP Systolic BP Diastolic Pulse Ox 100 03/05/24 02:04 03/05/24 02:09 03/05/24 02:09 Temperature Temperature Source Pulse Rate 99 Respiratory Rate Blood Pressure BP Systolic BP Diastolic Pulse Ox 100 99 03/05/24 02:12 03/05/24 02:12 03/05/24 02:12 Temperature 98.4 F Temperature Source Temporal Pulse Rate Respiratory Rate 14 Blood Pressure BP Systolic BP Diastolic Pulse Ox 03/05/24 02:13 03/05/24 02:13 03/05/24 03:04 Temperature Temperature Source Temporal Pulse Rate 90 Respiratory Rate Blood Pressure 132/89 H BP Systolic 132 BP Diastolic 89 Pulse Ox 03/05/24 03:04 03/05/24 03:04 03/05/24 03:04 Temperature Temperature Source Pulse Rate 98 Respiratory Rate 14 Blood Pressure BP Systolic BP Diastolic Pulse Ox 97 03/05/24 03:04 03/05/24 03:06 03/05/24 03:06 Temperature 97.7 F L Temperature Source Pulse Rate 74 Respiratory Rate Blood Pressure 125/60 H BP Systolic 125 BP Diastolic 60 Pulse Ox 03/05/24 04:04 03/05/24 04:04 03/05/24 04:04 Temperature Temperature Source Temporal Pulse Rate 86 Respiratory Rate Blood Pressure 125/85 H BP Systolic 125 BP Diastolic 85 Pulse Ox 03/05/24 04:04 03/05/24 04:04 03/05/24 05:05 Temperature 97.2 F L Temperature Source Temporal Pulse Rate Respiratory Rate 14 Blood Pressure BP Systolic BP Diastolic Pulse Ox 03/05/24 05:05 03/05/24 05:05 03/05/24 05:08 Temperature 98.2 F Temperature Source Pulse Rate Respiratory Rate 16 Blood Pressure 115/68 BP Systolic 115 BP Diastolic 68 Pulse Ox 03/05/24 05:08 03/05/24 06:02 03/05/24 06:02 Temperature Temperature Source Temporal Pulse Rate 90 Respiratory Rate 16 Blood Pressure BP Systolic BP Diastolic Pulse Ox 03/05/24 06:02 03/05/24 06:03 03/05/24 06:03 Temperature 98.3 F Temperature Source Pulse Rate 71 Respiratory Rate Blood Pressure 101/59 L BP Systolic 101 BP Diastolic 59 Pulse Ox 03/05/24 07:17 03/05/24 07:17 03/05/24 07:17 Temperature 98.7 F Temperature Source Temporal Pulse Rate Respiratory Rate 14 Blood Pressure BP Systolic BP Diastolic Pulse Ox 03/05/24 07:20 03/05/24 07:20 Temperature Temperature Source Pulse Rate 75 Respiratory Rate Blood Pressure 124/68 H BP Systolic 124 BP Diastolic 68 Pulse Ox Weight Weight: 168 lb Body Mass Index (BMI) 30.7 Physical Exam Const alert, oriented x3 and healthy appearing Constitutional Narrative: uncomfortable with contractions HEENT normocephalic and moist oral mucous membranes Head and Scalp: atraumatic Neck full ROM, no lymphadenopathy, supple and thyroid normal General: trachea midline Thyroid: thyroid normal Lymph Lymphatic: no lymphadenopathy noted Chest inspection of chest normal Resp normal respiratory effort Cardio regular rate GI normal to inspection, nondistended, normoactive bowel sounds, soft to palpation and non-tender Inspection: gravid external exam normal Bimanual Exam - Vag & Uterus: uterus non-tender Manual OB Exam: estimated gestational size appropriate, presentation cephalic, dilated, effaced and station Extremity normal to inspection General Extremity: Negative for edema Skin no rashes or lesions noted Neuro deep tendon reflexes 2+ bilaterally Motor Exam: strength 5/5 throughout and clonus absent Psych mental status grossly normal Labs Labs Labs: Blood Type O POSITIVE Antibody Screen NEGATIVE Hct 35.6 % (37-47) L Hgb 11.5 g/dL (12.0-15.0) L Syphilis Total Ab Non-reactive Rubella IgG Antibody Reactive (Nonreactive) Hep Bs Antigen Non-Reactive (Nonreactive) Hepatitis C Antibody Non-Reactive (Nonreactive) Chlamydia DNA (MARÍA) Negative (Negative) N.gonorrhoeae DNA (MARÍA) Negative (Negative) HIV 1&2 Antibody Non-Reactive (Nonreactive) Glucose 1 Hr 50 gm 102 mg/dL (70-140) Assessment & Plan (1) Anxiety: COMMENT: stable (2) : QUALIFIERS: Weeks of gestation: 37 weeks Qualified Code(s): Z3A.3 7 - 37 weeks gestation of COMMENT: NIPT low risk, carrier neg. , discussed genetic & carrier testing (3) Supervision of high-risk : QUALIFIERS: Trimester: third trimester Qualified Code(s): O09.93 - Supervision of high risk , unspecified, third trimester COMMENT: PRR , Boy,NADINE 03/21/24 Arnol (4) Aberrant right subclavian artery: COMMENT: . echo ordered by MFM and follow up with FTC: normal echo and FTC reassured does not appear problematic (5) Anemia affecting : COMMENT: Add iron-repeat CBC 1 month (6) SROM (spontaneous rupture of membranes): PLAN: Plan Patient presents IAL, plan expectant management for , pitocin PRN if needed. Pain management: plans epidural. GBS neg. Management of any complications: none I have reviewed the [facility] and made any clinically relevant updates.
[2024-03-05] MEDS: Oxytocin 15 Units/NS 250ml 15 UNITS/250 ML IV.SOLN 2 UNITS IV (09:06)
[2024-03-05] MEDS: Oxytocin 15 Units/NS 250ml 15 UNITS/250 ML IV.SOLN 334 UNITS IV (10:19)
[2024-03-05] MEDS: Oxytocin 15 Units/NS 250ml 15 UNITS/250 ML IV.SOLN 83 UNITS IV (10:50)
--- NOTE | 2024-03-05 10:57 | EX.PCM.OBRPT ---
Assessment & Plan (1) SROM (spontaneous rupture of membranes): (2) Anemia affecting : COMMENT: Add iron-repeat CBC 1 month (3) Aberrant right subclavian artery: COMMENT: . echo ordered by MFM and follow up with FTC: normal echo and FTC reassured does not appear problematic (4) Supervision of high-risk : QUALIFIERS: Trimester: third trimester Qualified Code(s): O09.93 - Supervision of high risk , unspecified, third trimester COMMENT: PRR , Boy,NADINE 03/21/24 Arnol (5) : QUALIFIERS: Weeks of gestation: 37 weeks Qualified Code(s): Z3A.37 - 37 weeks gestation of COMMENT: NIPT low risk, carrier neg. , discussed genetic & carrier testing (6) Anxiety: COMMENT: stable (7) Vaginal delivery: COMMENT: SM SROM 37 boy Beau Maternal Data Information NADINE Calculator Estimated Delivery Date Method Current WG Current Estimate 03/21/24 LMP (Certain) 37w 5d Other Estimates 03/16/24 Ultrasound #1 38w 3d Vaginal Delivery Operative Information Date of Procedure: 03/05/24 Pre-Operative Diagnosis: see a/p diagnoses Post-Operative Diagnosis: same Surgery / Procedure Performed: Spontaneous Vaginal Delivery Type of Anesthesia: Epidural Special Medications: none Estimated Blood Loss: 500 Fluids Replaced: crystalloid Findings Description of Procedure: Patient began pushing, was noted to rop and was rotated to SHELLI, pushed on and off for almost 5 hours and delivered the head in the shelli presentation. The head was delivered atraumatically and a loose nuchal cord ?1 was identified and the delivered through without complication. The anterior shoulder was noted to be with a mild dystocia lasting less than 30 seconds which was felt to be partially due to maternal position while pushing, and then it delivered with britt and posterior shoulders delivered without complication followed by the rest of the and the infant was placed on the maternal abdomen. Delayed cord clamping was employed for approximately 60 seconds. Cord was clamped and cut and gentle traction was applied to the cord and the placenta delivered spontaneously immediately following it was noted to be intact with three-vessel cord. The perineum and vagina were inspected and noted to have a partial third degree perineal laceration which was repaired in the usual fashion with 2-0 and 3-0 vicryl rapide. . EBL was 500. Patient and tolerated delivery well. Amniotic Fluid Description: Clear and - (terminal mec) Placental Delivery Description: Spontaneous Placenta Disposition: [facility] Cord Vessel Description: 3 Vessels Cord Entanglement: Around neck x 1, loose Delayed Cord Clamping: Yes Post Vaginal Delivery Medications Given After Delivery: IV Pitocin Episiotomy Description: None Complication Complications: None Procedures Urinary/Genital [id number]: [id number] Vaginal Delivery [facility]
--- NOTE | 2024-03-05 11:03 | DCINST_ITS ---
Discharge Instructions Diet Discharge Diet: No restrictions Activity Discharge Activity: Return to Normal Activity, May Not Drive (while taking narcotic pain medications.) and May Shower May resume sexual activity in: 4-6 weeks Dressing / Incision Call your doctor if your incision/area has: Continuous Slow Oozing, Sudden Increased Bleeding, Increased Pain/ Swelling, Increased Redness and Foul Smelling Discharge Follow Up Care Please Follow Up With: Jasmina Fagan MD When: Call [phone] to make an appointment with your doctor in 6 weeks. If you had elevated blood pressure or 4th degree laceration, you will need to be seen in 2 weeks. Test Results: Test results from this visit will be discussed in further detail at your follow- up appointment, if applicable. Discharge Plan Admission Admit Date/Time: 03/04/24 20:37 Attending Provider: Jasmina Fagan Primary Care Provider: Care Physician,Barbara Primary Discharge Orders/Prescriptions Prescriptions: No Action PNV no.[id number] 400 mcg-35 mg- 25 mg-5 mg tablet,chewable 1 tab PO DAILY Triple Magnesium Complex 400 mg magnesium capsule PO pyridoxine (vitamin B6) 25 mg tablet 25 mg PO DAILY ferrous sulfate 325 mg (65 mg iron) tablet 325 mg PO DAILY Referrals / Follow Up: Care Physician,No Primary [Primary Care Provider] - Disposition Disposition (needs filled in before D/C Order can be placed): Home, Self Care
[2024-03-05] MEDS: Naproxen 500 MG Tablet PO ×2 (12:27→20:48)
[2024-03-05] MEDS: 0.9% Saline Lock 10 ML Syringe IV (13:55)
[2024-03-05] MEDS: Dibucaine 30 GM Tube 1 APPLIC TOPICAL (14:52)
[2024-03-05] MEDS: Senna/Docusate Sodium 1 Tablet PO (14:52)
[2024-03-06] VITALS (9 sets, daily range): BP systolic 121–135; BP diastolic 73–85; PULSE 77–101; RESP 16–18; TEMP 36.7–37.3; O2SAT 81–100
[2024-03-06] MEDS: Naproxen 500 MG Tablet PO ×3 (05:32→21:01)
--- NOTE | 2024-03-06 07:47 | PCM.PN.OB ---
Subjective Subjective Patient doing well without complaints. Tolerating PO. Ambulating and voiding without difficulty. Feeding well. Denies chest pain, shortness of breath, calf pain/swelling, fevers, chills, lightheadedness. Objective Data Objective Data Vital Signs: Vital Signs Temp Pulse Resp BP Pulse Ox O2 Del Method 98.0 F 78 16 121/74 H 99 Room Air 03/06/24 04:00 03/06/24 04:49 03/06/24 04:00 03/06/24 04:49 03/06/24 04:00 03/06/24 04:00 Oxygen Delivery Method Room Air Weight: 168 lb Body Mass Index (BMI) 30.7 Intake & Output: Intake and Output for Last 24 Hours 03/04/24 03/05/24 03/06/24 23:59 23:59 23:59 Intake Total 125 / 125 3374.60 / 3374.60 Output Total 1550 / 1550 300 / 300 Balance 125 / 125 1824.60 / 1824.60 -300 / -300 Lab / Micro Data 03/04/24 21:00 03/04/24 21:00 Physical Exam Const alert and oriented x3 HEENT normocephalic Eyes PERRL Neck full ROM Resp normal respiratory effort GI soft to palpation GI Narrative: FF below U Assessment & Plan (1) Vaginal delivery: COMMENT: VALERIE TILLMAN SROM 37 boy Beau; partial 3rd degree tear PLAN: Plan s/p PPD #1 1. routine post delivery care 2. breast feeding- support given 3. rh positive 4. rubella immune 5. enc stool softener 6. plans home tomorrow
[2024-03-06] MEDS: Senna/Docusate Sodium 1 Tablet PO (13:12)
[2024-03-06] MEDS: Benzocaine/Lanolin/Aloe Vera 85 GM Spray 1 SPRAY TOPICAL (19:55)
[2024-03-07 02:08] VITALS: BP 129/73; PULSE 77
[2024-03-07 02:13] VITALS: BP 129/73; PULSE 78; RESP 16; TEMP 36.6; O2SAT 100
--- NOTE | 2024-03-07 07:49 | PCM.PN.OB ---
Subjective Subjective Patient doing well without complaints. Tolerating PO. Ambulating and voiding without difficulty. Feeding well. Denies chest pain, shortness of breath, calf pain/swelling, fevers, chills, lightheadedness. Objective Data Objective Data Vital Signs: Vital Signs Temp Pulse Resp BP Pulse Ox O2 Del Method 97.9 F 78 16 129/73 H 100 Room Air 03/07/24 02:13 03/07/24 02:13 03/07/24 02:13 03/07/24 02:13 03/07/24 02:13 03/07/24 02:13 Oxygen Delivery Method Room Air Weight: 168 lb Body Mass Index (BMI) 30.7 Intake & Output: Intake and Output for Last 24 Hours 03/05/24 03/06/24 03/07/24 23:59 23:59 23:59 Intake Total 4374.60 / 4374.60 Output Total 1550 / 1550 300 / 300 Balance 2824.60 / 2824.60 -300 / -300 Lab / Micro Data 03/04/24 21:00 03/04/24 21:00 Physical Exam Const alert and oriented x3 HEENT normocephalic Eyes PERRL Neck full ROM Resp normal respiratory effort GI soft to palpation GI Narrative: FF below U Assessment & Plan (1) Vaginal delivery: COMMENT: SM SROM 37 boy Beau; partial 3rd degree tear PLAN: Plan s/p PPD # 2 1. routine post delivery care 2. breast feeding- support given 3. rh positive 4. rubella immune 5. home today
[2024-03-07 08:47] VITALS: BP 130/73; PULSE 78; PULSE 81; O2SAT 99
[2024-03-07] MEDS: Naproxen 500 MG Tablet PO (09:05)
[2024-03-07] MEDS: Senna/Docusate Sodium 1 Tablet PO (09:06)
[2024-03-07 09:15] VITALS: BP 130/73; PULSE 77; RESP 16; TEMP 36.4; O2SAT 99
== END 2024-03-07 11:45 | disposition home or self-care (01) | DRG 768 ==
LOC: WPOUT 20:50 → WP 20:50
PROVIDERS: Admitting Provider Obstetrics & Gynecology; Referring Provider Obstetrics & Gynecology; Visit Provider Obstetrics & Gynecology
DX: O42.92 Full-term premature rupture of membranes, unspecified as to length of time between rupture and onset of labor (principal); Z37.0 Single live birth; O70.20 Third degree perineal laceration during delivery, unspecified; O35.8XX0 Maternal care for other (suspected) fetal abnormality and damage, not applicable or unspecified; O66.0 Obstructed labor due to shoulder dystocia; O77.0 Labor and delivery complicated by meconium in amniotic fluid; O69.81X0 Labor and delivery complicated by cord around neck, without compression, not applicable or unspecified; O99.02 Anemia complicating childbirth; Z3A.37 37 weeks gestation of pregnancy
CPT/HCPCS: 59025; 59050; 76815; 82565; 82570; 84112; 84156; 84450; 84460; 84550; 85025; 86780; 86850; 86900; 86901; 99221; J7120; A4216; G0378; J2405